=== PATIENT | male | born 1975 | race Caucasian/White ===

== ENCOUNTER 2021-09-27 18:29 | Emergency (ER) | payer OTHER, SELFPAY ==
[2021-09-27 19:01] VITALS: BP 127/88; PULSE 99; RESP 18; TEMP 36.9; O2SAT 97; BMI 33.4
[2021-09-27 19:28] LABS: Strep A Nucleic Acid Negative (Negative)
[2021-09-27 19:35] LABS: COVID-19 Test Negative (Negative); IDNOW Serial# 16C4AD1C
[2021-09-27 23:22] VITALS: BP 129/86; PULSE 72; RESP 18; TEMP 36.6; O2SAT 99
[2021-09-28 00:51] LABS: Influenza A Negative (Negative); Influenza B2 Negative (Negative)
--- NOTE | 2021-09-28 00:58 | ED_ITS ---
HPI - General Adult General Chief complaint: General Medical Stated complaint: burning in throat Time Seen by Provider: 09/27/21 23:42 Source: patient Mode of arrival: ambulatory Limitations: no limitations History of Present Illness HPI narrative: 46 yold male presents to the ED for sore throat and white spotes on right tonsil. patient states throat burning. patient denies any chest pain, shortness of breath, abdominal pain, fever, or chills. patient states no coughing up or chest pain. Related Data Allergies Allergy/AdvReac Type Severity Reaction Status Date / Time No Known Allergies Allergy Verified 09/28/21 00:07 Review of Systems Review of Systems: sore throat Yes all other systems are reviewed and are negative [facility] Social History Social History Advance Directives: No Advance Directives Information Provided: Yes Physical Exam ED Vital Signs: Vital Signs - 24 hr 09/27/21 19:01 09/27/21 23:22 Temperature 98.5 F 97.8 F Pulse Rate 99 72 Respiratory Rate 18 18 Blood Pressure 127/88 129/86 Pulse Oximetry 97 99 BMI result Body Mass Index 33.4 Const General: cooperative, healthy appearing, comfortable, no acute distress, well developed, alert, awake and Physically active Orientation/consciousness: patient oriented x3 HENMT Head: Yes normal to inspection, Yes No palpable skull fracture present, Yes normocephalic, Yes atraumatic and No abrasion Ears: hearing grossly normal bilaterally, external ears normal, TM's normal bilaterally, TM normal on the right, TM normal on the left, EAC's normal, mastoids normal and no periauricular adenopathy Throat: Yes posterior oropharynx normal, Yes tonsils normal and Yes uvula midline Eyes General: appearance normal, both eyes and all related structures Neck Neck: Yes normal visual inspection, Yes full ROM, Yes no lymphadenopathy, Yes no meningeal signs, Yes trachea midline, Yes supple, No anterior neck swelling and No tender Chest Chest palpation & inspection: normal inspection of the chest and normal palpation of entire chest wall Resp Effort & Inspection: normal respiratory effort and able to speak in complete sen tences Auscultation: clear to auscultation bilaterally Cardio Jugular venous distension: no JVD Heart sounds: S1 normal heart sound present and S2 normal heart sound present GI Inspection: Yes normal to inspection and No abdominal wall ecchymosis Palpation (GI): Soft to palpation, not firm, nontender, no guarding and not rigid General: No CVA tenderness and Yes no CVA tenderness Back/Spine/Pelvis Back: no CVA tenderness, No CVA tenderness and No back tenderness Skin General skin exam: no rashes or lesions noted and elasticity normal Neuro General: patient oriented x3, gait normal, tone normal, no meningeal signs and CN's II-XI intact bilaterally Cranial nerves: Yes CN's II-XII intact bilaterally Extrem General: Yes normal to inspection and Yes full ROM Psych Appearance: grossly normal, well kempt and not disheveled Course Course Course Narrative: Covid, strep, and influenza ordered Reevaluation(s) Reevaluation #1: patient is well appearing Time: 01:23 Medical Decision Making [facility] Narrative Medical decision making narrative: Pharyngitis Lab Data Labs: Lab Results 09/27/21 09/27/21 09/28/21 Range/Units 19:08 19:08 00:19 COVID-19 (PAMELA) Negative (Negative) COVID-19 Clin Com See Note Influenza Type A (HORTENCIA) Negative (Negative) Influenza Type B (HORTENCIA) Negative (Negative) Influenza A & B Note See Note S. pyogenes GrpA HORTENCIA Negative (Negative) Discharge Plan Discharge Clinical Impression: Pharyngitis Patient Disposition: Home, Self-Care Instructions: Pharyngitis (ED) Additional Instructions: Covid, Influenza, and strep came back negative. Return to the ED for chest pain, shortness of breath, drooling, change in voice, headache, coughing, dizziness, abdominal pain, neck swelling , or any other concerning symptoms. Please follow up with PCP. Stand Alone Forms: Work/School Release Print Language: Ukrainian
== END 2021-09-28 01:35 | disposition home or self-care (01) ==
PROVIDERS: Physician Assistant; Emergency Provider Emergency Medicine
DX: J02.9 Acute pharyngitis, unspecified (principal); Z20.822 Contact with and (suspected) exposure to COVID-19
CPT/HCPCS: 36415; 87502; 87635; 87651; 99282; 99283